=== PATIENT | female | born 1965 | race Caucasian/White ===

== ENCOUNTER 2021-03-18 06:27 | Emergency (ER) | payer SELFPAY ==
[2021-03-18] MEDS ORDERED: Cyclobenzaprine 10 MG TAB ONE (06:50)
[2021-03-18] MEDS ORDERED: Ketorolac Tromethamine 30 MG/ML VIAL ONE (06:50)
[2021-03-18] MEDS ORDERED: HYDROcodone/Acetaminophen 5/325 mg Tablet ONE (06:52)
== END 2021-03-18 08:10 | disposition home or self-care (01) ==
LOC: ERS 06:27
DX: M54.42 Lumbago with sciatica, left side (principal); F17.200 Nicotine dependence, unspecified, uncomplicated
CPT/HCPCS: 96372; J1885

== ENCOUNTER 2023-05-03 08:28 | Emergency (ER) | payer SELFPAY ==
[2023-05-03] MEDS ORDERED: Ketorolac Tromethamine 30 MG/ML VIAL ONE (09:00)
[2023-05-03 10:01] LABS: SARS-CoV-2 NAA Rapid Test Not Detected (NotDetected)
== END 2023-05-03 13:44 | disposition home or self-care (01) ==
LOC: ERS 08:28
DX: E04.1 Nontoxic single thyroid nodule (principal); J20.9 Acute bronchitis, unspecified; E03.9 Hypothyroidism, unspecified; M25.552 Pain in left hip; F17.210 Nicotine dependence, cigarettes, uncomplicated; Z20.822 Contact with and (suspected) exposure to COVID-19
CPT/HCPCS: 36415; 76536; 84443; 96372; J1885